=== PATIENT | female | born 1945 | race Two or more races ===

== ENCOUNTER → 2024-04-22 06:24 | Day surgery (SDC) | payer OTHER, SELFPAY ==
[2024-04-22 09:19] LABS: Glucose - Point of Care 103 mg/dl (70-99)
== END ==
LOC: GI 06:24
PROVIDERS: ATTENDING PHYSICIAN Internal Medicine Gastroenterology
DX: K44.9 Diaphragmatic hernia without obstruction or gangrene (principal); K31.7 Polyp of stomach and duodenum; R12 Heartburn; R14.0 Abdominal distension (gaseous)
CPT/HCPCS: 43239; 88305; 82962; 88342

== ENCOUNTER → 2024-10-18 09:17 | Outpatient (REF) | payer OTHER, SELFPAY ==
[2024-10-18 13:47] LABS: Blood Urea Nitrogen 15 mg/dl (7-17); Calcium 9.8 mg/dl (8.4-10.2); Carbon Dioxide 26 mmol/L (22-30); Chloride 106 mmol/L (98-107); Glucose 77 mg/dl (70-99); Potassium 4.4 mmol/L (3.5-5.1); Sodium 138 mmol/L (135-145); eGFR > 60.00
== END ==
LOC: REG 09:17
PROVIDERS: ATTENDING PHYSICIAN Internal Medicine Gastroenterology; FAMILY PHYSICIAN Internal Medicine
DX: R10.13 Epigastric pain (principal)
CPT/HCPCS: 36415; 80048

== ENCOUNTER → 2024-10-22 10:50 | Outpatient (REF) | payer OTHER, SELFPAY | LOC: RAD 10:50 | PROVIDERS: ATTENDING PHYSICIAN Internal Medicine Gastroenterology; FAMILY PHYSICIAN Internal Medicine | DX: R10.13 Epigastric pain (principal) | CPT/HCPCS: 74177; Q9967 ==